=== PATIENT | female | born 1965 | race Caucasian/White ===

== ENCOUNTER 2017-01-27 06:33 | Emergency (ER) ==
--- NOTE | 2017-01-27 08:00 | Diag Imaging Result Document ---
PROCEDURE NAME: XRAY HIP UNILATERAL LT - 01/27/2017 X-RAY LEFT HIP 2 VIEWS, 01/27/2017: COMPARISON: None. INDICATION: Left hip pain. FINDINGS: The bones are intact and normally aligned. The left hip joint space is preserved. There is degeneration at the sacroiliac joint. 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
--- NOTE | 2017-01-27 08:28 | PROVIDER DOCUMENTATION ---
HPI-Musculoskeletal Pain/Inj - GENERAL Chief Complaint: Extremity Pain Stated Complaint: LFT LEG PAIN Time Seen by Provider: 01/27/17 06:47 Source: patient - HX OF PRESENT ILLNESS-MUSKULOSKELTAL Nature of Presenting Problem: Patient was awakened during the night with left knee and thigh pain so severe she could not roll over. However, the pain is completely resolved by standing and gait is normal. Denies any injuries. She does have a little left hip pain after sitting for a long time. Quality of Pain: reports: aching, sharp Severity in ED: mild Onset/Duration: abrupt Timing: still present Modifying Factors: improves with: lying down, movement Any recent injury?: No Similar Symptoms Previously?: No Recently seen or treated by another doctor?: No - HIP/PELVIS PAIN/INJURY Hip Pain Location: reports: hip (L) Pain Radiation: reports: other (pain upward to hip) Review of Systems - Adult - REVIEW OF SYSTEMS - ADULT Constitutional: reports: no symptoms reported Past History - Adult - PAST MEDICAL HISTORY-ADULT Review of Records: reports: Medications Reviewed Physical Exam-Injury Related - Physical Exam-Injury Related Initial Vital Signs Reviewed: Yes General Appearance: appears well Eyes: PERRL/EOMI, pink conjunctivae Head, Ears, Nose, Mouth & Throat: normocephalic/atraumatic, normal ENT inspection Neck: non-tender Respiratory: chest non-tender Cardiovascular: normal peripheral pulses Rectal Exam: deferred Back Exam: no vertebral tenderness Extremity: normal range of motion, non-tender, normal gait, normal inspection, no calf tenderness, normal capillary refill, pelvis stable. negative: calf tenderness DTR: bicep (R): 3+, bicep (L): 3+, knee (R): 1+, knee (L): 1+ Integumentary: warm/dry Psych/Mental Status: normal mood/affect Progress - PLAN OF CARE/RESULTS Progress/Plan/Lab Results: Vital Signs Temp Pulse Resp BP Pulse Ox 01/27/17 06:39 97.5 F L 63 18 108/88 100 Sulfa (Sulfonamide Antibiotics) Allergy (Mild, Verified 01/27/17 06:57) RASH Bisoprolol [Zebeta] 5 mg PO DAILY PRN 01/27/17 Lisdexamfetamine Dimesylate [Vyvanse] 50 mg PO QAM 01/27/17 Thyroid,Pork [Hand Turner Thyroid] 90 mg PO QAM 01/27/17 Orders Category Date Time Status XRAY HIP UNILATERAL LT [RAD] Stat Exams 01/27/17 07:27 Draft - XRAY 1 XRAY: Left XRAY Study: Hip Impression: Abnormal, See EMR Report (sacroiliac disease) Departure - Departure Time of Disposition Order: 08:33 DIAGNOSIS: Sacroiliac joint disease Disposition: HOME 01 Certified Medical Emergency: Emergent Condition: Good Additional Instructions: If pain persist, see Ortho (Dr Plunkett) Prescriptions: Methylprednisolone [Medrol Dosepak] 4 mg PO DIRECTED #1 package Hydrocodone/Acetaminophen [[place] 5-325 Tablet] 1 each PO Q4-6H PRN PRN #12 tablet PRN Reason: Pain Referrals: Zohra Nash [Primary Care Provider] - Terrence Plunkett MD [STAFF PHYSICIAN] -
[2017-01-27 08:59] VITALS: BP 118/80
== END 2017-01-27 08:57 | disposition home or self-care (01) ==
LOC: ED 06:33
DX: M53.3 Sacrococcygeal disorders, not elsewhere classified (principal); M25.562 Pain in left knee; M79.652 Pain in left thigh; M25.552 Pain in left hip; Z79.899 Other long term (current) drug therapy